=== PATIENT | female | born 1970 | race Asian ===

== ENCOUNTER 2017-11-06 08:33 | Day surgery (SDC) | payer OTHER ==
[2017-11-05 09:58] VITALS: BMI 23.6
[2017-11-06] MEDS ORDERED: PROPOFOL 20 ML ONE ×5 (09:17)
[2017-11-06] MEDS ORDERED: LIDOCAINE HCL/PF 2% SDV 5ML VIAL ONE (09:17)
[2017-11-06 09:55] VITALS: TEMP 97.7
[2017-11-06 10:16] VITALS: PULSE 58
[2017-11-06 10:45] VITALS: BP 138/63
--- NOTE | 2017-11-09 10:52 | PATH ---
Surgical Pathology Report Patient Name: TIMO SAMANO [facility]. Rec. #: [id number] /Age/Gender: 1970 (Age: 47) / F Account: [id number] Location: ASU-ENDOSCOPY Taken: 11/06/2017 Received: 11/06/2017 Reported: 11/09/2017 Physicians: Shanel Eaton M.D. Specimen(s) Received A: BX TERMINAL ILEUM B: BX CECUM C: BX RIGHT COLON AND HEPATIC FLEXURE D: BX TRANSVERSE COLON E: BX DESCENDING COLON F: BX SIGMOID G: BX RECTUM Clinical History Ulcerative colitis Quiescent colitis Final Diagnosis A. TERMINAL ILEUM, BIOPSY: SMALL INTESTINAL MUCOSA WITH NO PATHOLOGIC CHANGES. NO ACTIVE COLITIS, ARCHITECTURAL DISTORTION, GRANULOMATA, OR DYSPLASIA IDENTIFIED. B. COLON, CECUM, BIOPSY: COLONIC MUCOSA WITH NO PATHOLOGIC CHANGES. NO ACTIVE COLITIS, ARCHITECTURAL DISTORTION, GRANULOMATA, OR DYSPLASIA IDENTIFIED. NO MICROSCOPIC COLITIS IDENTIFIED (NO LYMPHOCYTIC OR COLLAGENOUS COLITIS IDENTIFIED). C. COLON, RIGHT COLON AND HEPATIC FLEXURE, BIOPSY: COLONIC MUCOSA WITH NO PATHOLOGIC CHANGES. NO ACTIVE COLITIS, ARCHITECTURAL DISTORTION, GRANULOMATA, OR DYSPLASIA IDENTIFIED. NO MICROSCOPIC COLITIS IDENTIFIED (NO LYMPHOCYTIC OR COLLAGENOUS COLITIS IDENTIFIED). D. COLON, TRANSVERSE, BIOPSY: COLONIC MUCOSA WITH NO PATHOLOGIC CHANGES. NO ACTIVE COLITIS, ARCHITECTURAL DISTORTION, GRANULOMATA, OR DYSPLASIA IDENTIFIED. NO MICROSCOPIC COLITIS IDENTIFIED (NO LYMPHOCYTIC OR COLLAGENOUS COLITIS IDENTIFIED). E. COLON, DESCENDING, BIOPSY: COLONIC MUCOSA WITH EXTRAVASATION OF RED BLOOD CELLS WITHIN LAMINA PROPRIA. NO ACTIVE COLITIS, ARCHITECTURAL DISTORTION, GRANULOMATA, OR DYSPLASIA IDENTIFIED. NO MICROSCOPIC COLITIS IDENTIFIED (NO LYMPHOCYTIC OR COLLAGENOUS COLITIS IDENTIFIED). F. COLON, SIGMOID, BIOPSY: COLONIC MUCOSA WITH EXTRAVASATION OF RED BLOOD CELLS WITHIN LAMINA PROPRIA. NO ACTIVE COLITIS, ARCHITECTURAL DISTORTION, GRANULOMATA, OR DYSPLASIA IDENTIFIED. NO MICROSCOPIC COLITIS IDENTIFIED (NO LYMPHOCYTIC OR COLLAGENOUS COLITIS IDENTIFIED). G. COLON, RECTUM, BIOPSY: NONSPECIFIC FOCAL ACTIVE COLITIS. NO ARCHITECTURAL DISTORTION, GRANULOMATA, OR DYSPLASIA IDENTIFIED. Comment: The injury pattern in specimen G is nonspecific, and can be seen in a variety of disease conditions including acute self-limiting colitis and idiopathic inflammatory bowel disease. Recommend correlation with clinical findings and followup as clinically indicated. Electronically Signed Martin Polanco M.D. Gross Description A. Received in formalin, labeled "biopsy terminal ileum" are 3 tavarez, irregular portions of soft tissue measuring 0.2-0.3 cm. in greatest dimension. The specimens are submitted in toto in one cassette. B. Received in formalin, labeled "cecum" are multiple tavarez, irregular portions of soft tissue measuring 0.2 cm. in greatest dimension. The specimens are submitted in toto in one cassette. C. Received in formalin, labeled "biopsy right colon and hepatic flexure" are 2 tavarez, irregular portions of soft tissue measuring 0.3 cm. in greatest dimension. The specimens are submitted in toto in one cassette. D. Received in formalin, labeled "biopsy transverse colon" are 4 tavarez, irregular portions of soft tissue measuring 0.2 cm. in greatest dimension. The specimens are submitted in toto in one cassette. E. Received in formalin, labeled "biopsy descending colon" are 3 tavarez, irregular portions of soft tissue measuring 0.2-0.3 cm. in greatest dimension. The specimens are submitted in toto in one cassette. F. Received in formalin, labeled "biopsy sigmoid" are 3 tavarez, irregular portions of soft tissue measuring 0.2 cm. in greatest dimension. The specimens are submitted in toto in one cassette. G. Received in formalin, labeled "biopsy rectum" are 3 tavarez, irregular portions of soft tissue measuring 0.2 cm. in greatest dimension. The specimens are submitted in toto in one cassette. [facility]11/06[facility]2017 [facility]11/06/2017
== END 2017-11-06 11:11 | disposition home or self-care (01) ==
LOC: JASU-ENDO 08:33
PROVIDERS: ATTEND Internal Medicine Gastroenterology
PROC: 0DBE8ZX Excision of Large Intestine, Via Natural or Artificial Opening Endoscopic, Diagnostic (ICD-10-PCS; principal; 2017-11-06 09:00)
DX: Z12.11 Encounter for screening for malignant neoplasm of colon (principal)
CPT/HCPCS: 84703; 87045; 87046; 87177; 87209; 88305-TC

== ENCOUNTER 2020-02-14 09:15 | Emergency (ER) | payer OTHER ==
--- NOTE | 2020-02-14 10:05 | TELE ---
HPI Do you have fever,cough or shortness of breath?: Yes (Patient with diabetes and hypertension concerned about COVID. Reports fever, mild headache, mild cough x3 days. Denies sick contacts or recent travel. Has been taking ibuprofen with minimal provement of symptoms.) - General Reason For Visit: COVID 19 TEST Time Seen by Provider: 02/14/20 09:40 History Source: Patient Exam Limitations: No Limitations - History of Present Illness Associated Symptoms: reports: cough, fever/chills Past History - Travel History Traveled outside of the country in the last 30 days: No Close contact w/someone who was outside of country & ill: No - Medical History Allergies/Adverse Reactions: Allergies Allergy/AdvReac Type Severity Reaction Status Date / Time No Known Allergies Allergy Verified 02/03/12 10:20 Home Medications: Ambulatory Orders metFORMIN HCL [Glucophage -] 1,000 mg PO DAILY 02/03/12 Cholecalciferol (Vitamin D3) [Vitamin D3] 1,000 unit PO DAILY 11/05/17 Glipizide [Glucotrol Xl] 2.5 mg PO DAILY 11/05/17 L.acidoph,Paracasei, B.lactis [Probiotic] 1 each PO DAILY 11/05/17 Anemia: No Asthma: No Cancer: No Cardiac Disorders: No CVA: No COPD: No CHF: No Dementia: No Diabetes: Yes (NIDDM) GI Disorders: Yes (COLITIS) Disorders: No HTN: Yes Hypercholesterolemia: No Liver Disease: No Seizures: No Thyroid Disease: No - Surgical History Abdominal Surgery: No Appendectomy: No Cardiac Surgery: No Cholecystectomy: No Lung Surgery: No Neurologic Surgery: No Orthopedic Surgery: No - Psycho-Social/Smoking History Smoking History: Never smoked Have you smoked in the past 12 months: No - Medical Decision Making 02/14/20 10:03 49-year-old female with history of diabetes and hypertension complaining of cough, fever x3 days. Denies recent travel or sick contacts. Concerned about. Has been taking ibuprofen without relief of symptoms. Discharge Diagnosis at time of Disposition: Counseled about COVID-19 virus infection, COVID-19 ruled out by laboratory testing Fever Qualifiers: Fever type: unspecified Qualified Code(s): R50.9 - Fever, unspecified - Referrals Follow-up Referral(s): Suzanne Felix MD [Primary Care Provider] - - Patient Instructions Additional Discharge Instructions: Alternate between acetaminophen 650 and ibuprofen 400 mg every 6 hours as needed for pain Patient has been instructed to present to [facility] for COVID testing - Discharge Condition at time of Disposition: Stable
== END 2020-02-14 10:20 | disposition home or self-care (01) ==
LOC: JVIRT 09:15
DX: R50.9 Fever, unspecified (principal)
CPT/HCPCS: Q3014-GT; U0003

== ENCOUNTER 2022-08-29 04:39 | Day surgery (SDC) | payer OTHER ==
[2022-08-27 12:46] VITALS: BMI 22.6
[2022-08-29 09:24] VITALS: TEMP 97.1
[2022-08-29 11:44] VITALS: BP 142/72
[2022-08-29 12:51] VITALS: PULSE 90; RESP 18
== END 2022-08-29 10:35 | disposition home or self-care (01) ==
LOC: JASU-ENDO 04:39
PROVIDERS: ATTEND Internal Medicine Gastroenterology
PROC: 0DBL8ZX Excision of Transverse Colon, Via Natural or Artificial Opening Endoscopic, Diagnostic (ICD-10-PCS; 2022-08-29)
PROC: 0DBN8ZX Excision of Sigmoid Colon, Via Natural or Artificial Opening Endoscopic, Diagnostic (ICD-10-PCS; 2022-08-29)
PROC: 0DBP8ZX Excision of Rectum, Via Natural or Artificial Opening Endoscopic, Diagnostic (ICD-10-PCS; 2022-08-29)
PROC: 0DBB8ZX Excision of Ileum, Via Natural or Artificial Opening Endoscopic, Diagnostic (ICD-10-PCS; 2022-08-29)
PROC: 0DBH8ZX Excision of Cecum, Via Natural or Artificial Opening Endoscopic, Diagnostic (ICD-10-PCS; principal; 2022-08-29 08:30)
DX: D12.8 Benign neoplasm of rectum (principal); K64.8 Other hemorrhoids; K51.00 Ulcerative (chronic) pancolitis without complications
CPT/HCPCS: 88305-TC